=== PATIENT | female | born 1995 | race Native Hawaiian/Other Pacific Islander ===

== ENCOUNTER 2017-03-02 19:15 | Emergency (ER) | payer BC ==
[2017-03-02] MEDS ORDERED: NS 0.9% 1000 ML* 1,000 ML IV ONE (20:54)
--- NOTE | 2017-03-02 22:04 | RAD ---
INDICATION: Abdominal pain and nausea. COMPARISON: There are no prior studies available for comparison. TECHNIQUE: Supine and upright views of the abdomen were obtained. FINDINGS: There is a paucity of bowel gas. The stomach, small and large bowel appear nondistended. The top of the left hemidiaphragm is cut off on the film limiting the study although no free intraperitoneal air is seen. No abnormal calcifications are seen. IMPRESSION: LIMITED STUDY, NO EVIDENCE FOR OBSTRUCTION.
[2017-03-02 22:11] LABS: Hematocrit 40 % (35-47); Hemoglobin 13.7 g/dl (12.0-16.0); Mean Corpuscular HGB Conc 34 g/dl (31-36); Mean Corpuscular Hemoglobin 30 pg (27-31); Mean Corpuscular Volume 88 fL (80-97); Mean Platelet Volume 9 um3 (7.4-10.4); Red Cell Distribution Width 13 % (10.5-15); White Blood Count 12.6 10^3/ul (3.5-10.8)
[2017-03-02 22:18] LABS: ALT 15 U/L (7-52); Albumin 4.7 g/dL (3.2-5.2); Alkaline Phosphatase 71 U/L (34-104); Anion Gap 11 mmol/L (2-11); BUN/Creatinine Ratio 17.1 (8-20); Blood Urea Nitrogen 12 mg/dL (6-24); C Reactive Protein 9.19 mg/L (< 5.00); CO2 Carbon Dioxide 20 mmol/L (22-32); Chloride 104 mmol/L (101-111); EGFR African American 138.6 (>60); EGFR Non-African American 107.8 (>60); Globulin 3.5 g/dL (2-4); Glucose 81 mg/dL (70-100); Lipase 16 U/L (11.0-82.0); Sodium 135 mmol/L (133-145); Total Protein 8.2 g/dL (6.4-8.9)
[2017-03-02 23:27] LABS: Urine Bacteria Absent (Absent); Urine Bilirubin Negative (Negative); Urine Glucose Negative (Negative); Urine Nitrite Negative (Negative)
[2017-03-03] MEDS ORDERED: Ciprofloxacin TAB* 500 MG PO ONE (00:55)
[2017-03-03 01:40] VITALS: BP 127/71
--- NOTE | 2017-03-11 02:06 | ED ---
Ar Douglas Nilda, scribed for Quintin Alvarado MD on 03/02/17 at 2221 . Abdominal Pain/Female - HPI Summary HPI Summary: This patient is a 21 year old F presenting to [facility] with a chief complaint of severe constant dull abdominal pain (RLQ and LLQ) that began 18 hours ago. The patient rates the pain 7/10 in severity. Symptoms aggravated and alleviated by nothing. Patient reports nausea, chills, and diarrhea. She denies vomiting and burning with urination. She states she has not been on Abx lately. No PSHx. Not sexually active. - History of Current Complaint Chief Complaint: EDAbdPain Stated Complaint: ABD PAIN Time Seen by Provider: 03/02/17 21:09 Hx Obtained From: Patient ?: No Onset/Duration: Sudden Onset, Lasting Hours, Still Present Timing: Constant Severity Currently: Severe Pain Intensity: 7 Pain Scale Used: 0-10 Numeric Location: Discrete At: RLQ, Discrete At: LLQ Radiates: No Aggravating Factor(s): Nothing Alleviating Factor(s): Nothing Associated Signs and Symptoms: Positive: Other: - nausea, chills, and diarrhea. She denies vomiting and burning with urination. Allergies/Adverse Reactions: Allergies Allergy/AdvReac Type Severity Reaction Status Date / Time No Known Allergies Allergy Verified 03/02/17 20:34 PMH/Surg Hx/FS Hx/Imm Hx Sensory History: Denies: Hx Legally Blind EENT History: Denies: Hx Deafness Infectious Disease History: No Infectious Disease History: Denies: Traveled Outside the [place] in Last 30 Days - Family History Known Family History: Positive: Diabetes Negative: Hypertension - Social History Occupation: Student Alcohol Use: Occasionally Substance Use Type: Reports: Marijuana Smoking Status (MU): Never Smoked Tobacco Review of Systems Positive: Chills Positive: Abdominal Pain, Diarrhea, Nausea. Negative: Vomiting Negative: burning All Other Systems Reviewed And Are Negative: Yes Physical Exam - Summary Physical Exam Summary: Appearance: Well-appearing, Well-nourished Skin: Warm, Anicteric Eyes: Normal, PERRL ENT: Normal Neck: Supple, nontender, lymph absent Respiratory: Clear to auscultation Cardiovascular: Normal, S1, S2, no gallops, no rubs, no murmur Abdomen: Soft, LLQ discomfort with palpation, no rebound, no rigidity Bowel: Present Musculoskeletal: Normal, Strength/ROM Intact, no edema Neurological:k Normal, A&Ox3 Psychiatric: Normal Triage Information Reviewed: Yes Vital Signs On Initial Exam: Initial Vitals Temp Pulse Resp BP Pulse Ox 98.7 F 81 18 161/98 100 03/02/17 19:24 03/02/17 19:24 03/02/17 19:24 03/02/17 19:24 03/02/17 19:24 Vital Signs Reviewed: Yes - Edil Coma Scale Coma Scale Total: 15 Diagnostics - Vital Signs Vital Signs Temp Pulse Resp BP Pulse Ox 03/02/17 19:24 98.7 F 81 18 161/98 100 - Laboratory Lab Results: Lab Results 03/02/17 03/02/17 03/02/17 Range/Units 21:32 22:00 22:00 WBC 12.6 H (3.5-10.8) 10^3/ul RBC 4.50 (4.0-5.4) 10^6/ul Hgb 13.7 (12.0-16.0) g/dl Hct 40 (35-47) % MCV 88 (80-97) fL MCH 30 (27-31) pg MCHC 34 (31-36) g/dl RDW 13 (10.5-15) % Plt Count 263 (150-450) 10^3/ul MPV 9 (7.4-10.4) um3 Neut % (Auto) 79.1 (38-83) % Lymph % (Auto) 13.9 L (25-47) % Upton % (Auto) 6.3 (1-9) % Eos % (Auto) 0.3 (0-6) % Baso % (Auto) 0.4 (0-2) % Absolute Neuts (auto) 10.0 H (1.5-7.7) 10^3/ul Absolute Lymphs (auto) 1.8 (1.0-4.8) 10^3/ul Absolute Monos (auto) 0.8 (0-0.8) 10^3/ul Absolute Eos (auto) 0 (0-0.6) 10^3/ul Absolute Basos (auto) 0.1 (0-0.2) 10^3/ul Absolute Nucleated RBC 0 10^3/ul Nucleated RBC % 0 INR (Anticoag Therapy) 0.91 (0.89-1.11) APTT 32.9 (26.0-36.3) seconds Sodium 135 (133-145) mmol/L Potassium TNP Chloride 104 (101-111) mmol/L Carbon Dioxide 20 L (22-32) mmol/L Anion Gap 11 (2-11) mmol/L BUN 12 (6-24) mg/dL Creatinine 0.70 (0.51-0.95) mg/dL Est GFR ( Amer) 138.6 (>60) Est GFR (Non-Af Amer) 107.8 (>60) BUN/Creatinine Ratio 17.1 (8-20) Glucose 81 (70-100) mg/dL Lactic Acid (0.5-2.0) mmol/L Calcium 10.0 (8.6-10.3) mg/dL Total Bilirubin 0.60 (0.2-1.0) mg/dL AST TNP ALT 15 (7-52) U/L Alkaline Phosphatase 71 (34-104) U/L C-Reactive Protein 9.19 H (< 5.00) mg/L Total Protein 8.2 (6.4-8.9) g/dL Albumin 4.7 (3.2-5.2) g/dL Globulin 3.5 (2-4) g/dL Albumin/Globulin Ratio 1.3 (1-3) Lipase 16 (11.0-82.0) U/L Urine Color Urine Appearance Urine pH (5-9) Ur Specific Corona (1.010-1.030) Urine Protein (Negative) Urine Ketones (Negative) Urine Blood (Negative) Urine Nitrate (Negative) Urine Bilirubin (Negative) Urine Urobilinogen (Negative) Ur Leukocyte Esterase (Negative) Urine WBC (Auto) (Absent) Urine RBC (Auto) (Absent) Ur Squamous Epith Cells (Absent) Urine Bacteria (Absent) Urine Glucose (Negative) 03/02/17 03/02/17 03/02/17 Range/Units 22:00 22:09 22:55 WBC (3.5-10.8) 10^3/ul RBC (4.0-5.4) 10^6/ul Hgb (12.0-16.0) g/dl Hct (35-47) % MCV (80-97) fL MCH (27-31) pg MCHC (31-36) g/dl RDW (10.5-15) % Plt Count (150-450) 10^3/ul MPV (7.4-10.4) um3 Neut % (Auto) (38-83) % Lymph % (Auto) (25-47) % Upton % (Auto) (1-9) % Eos % (Auto) (0-6) % Baso % (Auto) (0-2) % Absolute Neuts (auto) (1.5-7.7) 10^3/ul Absolute Lymphs (auto) (1.0-4.8) 10^3/ul Absolute Monos (auto) (0-0.8) 10^3/ul Absolute Eos (auto) (0-0.6) 10^3/ul Absolute Basos (auto) (0-0.2) 10^3/ul Absolute Nucleated RBC 10^3/ul Nucleated RBC % INR (Anticoag Therapy) (0.89-1.11) APTT (26.0-36.3) seconds Sodium (133-145) mmol/L Potassium 4.0 Chloride (101-111) mmol/L Carbon Dioxide (22-32) mmol/L Anion Gap (2-11) mmol/L BUN (6-24) mg/dL Creatinine (0.51-0.95) mg/dL Est GFR ( Amer) (>60) Est GFR (Non-Af Amer) (>60) BUN/Creatinine Ratio (8-20) Glucose (70-100) mg/dL Lactic Acid 0.9 (0.5-2.0) mmol/L Calcium (8.6-10.3) mg/dL Total Bilirubin (0.2-1.0) mg/dL AST 14 ALT (7-52) U/L Alkaline Phosphatase (34-104) U/L C-Reactive Protein (< 5.00) mg/L Total Protein (6.4-8.9) g/dL Albumin (3.2-5.2) g/dL Globulin (2-4) g/dL Albumin/Globulin Ratio (1-3) Lipase (11.0-82.0) U/L Urine Color Yellow Urine Appearance Cloudy Urine pH 5.0 (5-9) Ur Specific Corona 1.027 (1.010-1.030) Urine Protein 1+(30 mg/dl) H (Negative) Urine Ketones Negative (Negative) Urine Blood 2+ H (Negative) Urine Nitrate Negative (Negative) Urine Bilirubin Negative (Negative) Urine Urobilinogen Negative (Negative) Ur Leukocyte Esterase 3+ H (Negative) Urine WBC (Auto) 3+(>20/hpf) H (Absent) Urine RBC (Auto) 3+(>10/hpf) H (Absent) Ur Squamous Epith Cells Present H (Absent) Urine Bacteria Absent (Absent) Urine Glucose Negative (Negative) Result Diagrams: 03/02/17 22:00 03/02/17 22:00 Lab Statement: Any lab studies that have been ordered have been reviewed, and results considered in the medical decision making process. - Radiology Abdominal XR Radiology Interpretation Completed By: Radiologist - limited study, no evidence for obstructions. ED physician has reviewed this radiology report and agrees. Abdominal Pain Fem Course/Dx - Course Course Of Treatment: This patient is a 21 year old F presenting to [facility] with a chief complaint of severe constant dull abdominal pain (RLQ and LLQ) that began 18 hours ago. The patient rates the pain 7/10 in severity. Symptoms aggravated and alleviated by nothing. Patient reports nausea, chills, and diarrhea. She denies vomiting and burning with urination. She states she has not been on Abx lately. No PSHx. Not sexually active. Abd XR, per radiologist, reveals limited study, no evidence for obstructions. ED physician has reviewed this radiology report and agrees. Dx UTI. Patient is stable and will be D/C with prescription for Cipro. Patient understands and is agreeable to plan. - Diagnoses Provider Diagnoses: Urinary tract infection Discharge - Discharge Plan Condition: Fair Disposition: HOME Prescriptions: Ciprofloxacin TAB* [Cipro 500 MG TAB*] 500 mg PO DAILY #10 tab Patient Education Materials: Urinary Tract Infection in Women (ED) Referrals: [facility] [Primary Care Provider] - The documentation as recorded by the Ar flores Nilda accurately reflects the service I personally performed and the decisions made by , Quintin Alvarado MD.
== END 2017-03-03 01:40 | disposition home or self-care (01) ==
LOC: ED 19:15
DX: N39.0 Urinary tract infection, site not specified (principal); R11.0 Nausea; R19.7 Diarrhea, unspecified; R10.9 Unspecified abdominal pain
CPT/HCPCS: 36415; 74020; 80053; 81003; 81015; 83605; 83690; 85025; 85610; 85730; 86140; 87077; 87086; 96360; 99283; A9270-GY